=== PATIENT | female | born 1945 | race American Indian/Alaskan Native ===

== ENCOUNTER 2018-09-12 23:41 | Emergency (ER) | payer MEDICARE ==
[~2018-09-12 23:41] MED LIST: ADRENALIN ONE
--- NOTE | 2018-09-12 23:58 | Emergency Department Report ---
HPI - General Time Seen by Provider: 09/12/18 23:55 - HPI HPI: 73-year-old -[place] female presents to the emergency department from home via EMS in cardiac arrest. Apparently the patient and family that she was not feeling well and then collapsed. She has a past medical history of diabetes and per EMS, based on her medications, some type of cardiac history as well. EMS arrived at 11:05 PM and started CPR and ACLS protocol. An intraosseous line was placed and the patient was intubated. She received chest compressions and 3 rounds of epinephrine. The patient was in asystole and then changed to PEA. The patient presents into the emergency department still pulseless and in PEA. ED Review of Systems ROS: Stated complaint: CARDIAC ARREST Other details as noted in HPI Comment: Unobtainable due to pts medical conditions Physical Exam - Physical Exam Physical Exam: GENERAL: Patient is ill-appearing and unresponsive. HENT: Normocephalic. Atraumatic. Patient has moist mucous membranes. ET tube in place with bloody secretions seen. EYES: Pupils are fixed and dilated. NECK: Supple. Trachea appears midline. CHEST/LUNGS: There are no spontaneous respirations. HEART/CARDIOVASCULAR: There are no spontaneous heart sounds. ABDOMEN: Abdomen is soft. There is no abdominal distention. SKIN: Skin is cool but dry. NEURO: Unresponsive. Does not withdraw to painful stimuli. Does not follow any commands. MUSCULOSKELETAL: There is no obvious deformity. There is no evidence of acute injury. No palpable femoral or radial pulses. ED Medical Decision Making - Medical Decision Making This patient presented to the emergency department in cardiac arrest. She had been pulseless and in cardiac arrest for about 35 minutes prior to arrival in our emergency department. She had received 3 doses of epinephrine and had been intubated with ACLS protocol prior to arrival. Upon arrival to bed 22, the patient was transferred to our rney immediately continued chest compressions. The patient was placed on the monitor and it appeared to be PEA. She was given epinephrine and sodium bicarbonate. The patient had some bloody secretions coming up from the endotracheal tube. However there were bilateral breath sounds heard with bag valve ventilation and some chest rise with the bagging. Patient had about 3 rounds of ACLS protocol with epinephrine given each time. Each time the patient was pulseless and in PEA. At this point, the patient was pulseless and in cardiac arrest for a total of about 50 minutes. I took a bedside ultrasound and looked at the patient's heart and there was no squeeze. Patient's pupils were fixed and dilated. There was very little chance of return of spontaneous circulation. At this point, time of was called at 2352. - Differential Diagnosis MN, PE, CVA, Dissection Critical Care Time: Yes Critical care time in (mins) excluding proc time.: 20 Critical care attestation.: If time is entered above; I have spent that time in minutes in the direct care of this critically ill patient, excluding procedure time. Critical care time was spent on this patient during her initial evaluation, supervision of ACLS protocol, and discussion with the family regarding the patient's expiration. Critical Care Time: 20 minutes ED Disposition Clinical Impression: Cardiac arrest Acute respiratory failure Qualifiers: Respiratory failure complication: unspecified whether with hypoxia or hypercapnia Qualified Code(s): J96.00 - Acute respiratory failure, unspecified whether with hypoxia or hypercapnia Disposition: DC-20 Is pt being admited?: No Referrals: PAUL PATTON MD [Primary Care Provider] - 3-5 Days Time of Disposition: 03:00
== END 2018-09-12 23:55 ==
LOC: ED 23:41
DX: I46.9 Cardiac arrest, cause unspecified (principal); J96.00 Acute respiratory failure, unspecified whether with hypoxia or hypercapnia; E11.9 Type 2 diabetes mellitus without complications
CPT/HCPCS: 92950; 99285; J0171